=== PATIENT | female | born 1975 | race Caucasian/White ===

== ENCOUNTER 2016-07-29 16:45 | Emergency (ER) | payer MEDICAID ==
[~2016-07-29] VITALS: Ht 157.5 cm; Wt 139.3 kg
[~2016-07-29 16:45] MED LIST: DOXYCYCLINE; HYDR10TA35; LEV500T PO; METR250T PO; METRONIDAZOLE
[2016-07-29 16:55] VITALS: BP 163/111
[2016-07-29 17:43] LABS: Urine Bilirubin Negative (Negative); Urine Blood 3+ /uL (Negative); Urine Ca Oxalate Crystal FEW (None Seen); Urine Glucose Normal (Normal); Urine Ketone Negative (Negative); Urine Mucus FEW (None Seen); Urine Nitrite Negative (Negative); Urine RBC 431 /hpf (0 - 4); Urine Squamous Epithelial Cell FEW /hpf (<5); Urine pH 5.5 (5.0-8.0)
[2016-07-29 17:44] LABS: Urine Color Brown (Yellow)
== END 2016-07-30 02:11 | disposition left against medical advice (07) ==
LOC: ER 16:45 → EDBD 16:45 → ER 07-30 01:00
DX: R10.9 Unspecified abdominal pain (principal); R35.0 Frequency of micturition; Z53.21 Procedure and treatment not carried out due to patient leaving prior to being seen by health care provider
CPT/HCPCS: 81001; 81025

== ENCOUNTER 2020-09-06 11:56 | Emergency (ER) | payer SELFPAY ==
[~2020-09-06] VITALS: Ht 160 cm; Wt 139.3 kg
[2020-09-06 16:10] VITALS: BP 150/96
[2020-09-06] MEDS ORDERED: KETOROLAC TROMETH 60MG/2ML VIAL IM ONE (16:15)
== END 2020-09-06 16:14 | disposition home or self-care (01) ==
LOC: ER 11:56
DX: N39.0 Urinary tract infection, site not specified (principal); J45.909 Unspecified asthma, uncomplicated; F17.210 Nicotine dependence, cigarettes, uncomplicated; Z90.710 Acquired absence of both cervix and uterus; Z79.899 Other long term (current) drug therapy; Z79.2 Long term (current) use of antibiotics
CPT/HCPCS: 96372; 99283; J1885

== ENCOUNTER 2021-05-05 07:35 | Emergency (ER) | payer SELFPAY ==
[~2021-05-05] VITALS: Ht 160 cm; Wt 147.4 kg
[2021-05-05 08:42] LABS: Basophils # (auto) 0 10 ^3/uL (0-0.2); Basophils % (auto) 0.9 % (0.0-2.0); Eosinophils # (auto) 0.1 10 ^3/uL (0-0.8); Eosinophils % (auto) 2.2 % (0.0-7.0); Hematocrit 40.3 % (36.0-46.0); Hemoglobin 13.3 g/dL (12.2-16.2); Lymphocytes % (auto) 24.7 % (10.0-50.0); Mean Corpuscular Hemoglobin 29.7 pg (28.0-32.0); Monocytes # (auto) 0.6 10 ^3/uL (0-1.3); Monocytes % (auto) 15.7 % (0.0-12.0); Neutrophils # (auto) 2.3 10 ^3/uL (1.6-8.6); Neutrophils % (auto) 56.5 % (37.0-80.0); Nucleated Red Blood Cells % 0.2 %; Red Blood Cells 4.48 10^6/uL (4.0-5.20); Red Cell Distribution Width 13.3 % (11.8-14.3)
[2021-05-05 09:09] LABS: BUN/Creatinine Ratio 11.4; Calcium 7.8 mg/dL (8.5-10.1); Magnesium 1.7 mg/dL (1.6-2.6)
[2021-05-05 09:15] LABS: Bilirubin, Total 0.2 mg/dL (0.2-1.0); Total Protein 6.5 g/dL (6.4-8.2)
[2021-05-05 10:41] VITALS: BP 161/99
[2021-05-05] MEDS ORDERED: AZIT500T66 PO (11:19)
[2021-05-05] MEDS ORDERED: PRED20TA2 PO (11:19)
[2021-05-05] MEDS ORDERED: ACET-1080 PO (11:19)
[2021-05-05] MEDS ORDERED: ACETAMINOPHEN 500 MG TAB PO ONE (11:30)
== END 2021-05-05 12:03 | disposition home or self-care (01) ==
LOC: ER 07:35
DX: J03.90 Acute tonsillitis, unspecified (principal); R07.89 Other chest pain; J45.909 Unspecified asthma, uncomplicated; Z90.710 Acquired absence of both cervix and uterus
CPT/HCPCS: 36415; 71046; 80053; 83735; 84484; 85025; 93005

== ENCOUNTER 2021-10-01 03:02 | Emergency (ER) | payer SELFPAY ==
[~2021-10-01] VITALS: Ht 160 cm; Wt 139.3 kg
[~2021-10-01 03:02] MED LIST changes: +ACET-1080 PO; +AZIT500T66 PO; +PRED20TA2 PO
[2021-10-01 04:15] VITALS: BP 153/94
== END 2021-10-01 05:06 | disposition home or self-care (01) ==
LOC: ER 03:02
DX: I89.0 Lymphedema, not elsewhere classified (principal); F17.210 Nicotine dependence, cigarettes, uncomplicated; F15.10 Other stimulant abuse, uncomplicated; J45.909 Unspecified asthma, uncomplicated; Z90.710 Acquired absence of both cervix and uterus
CPT/HCPCS: 93970

== ENCOUNTER → 2021-10-24 | Emergency (ER) | payer SELFPAY ==
[~2021-10-24] VITALS: Ht 160 cm; Wt 140.6 kg
[~2021-10-24] MED LIST changes: +AMOX-277 PO; +BENZOCAINE (DENTAL) 20 % SPRAY 60ML MT ONE; +IBUP800T27 PO
[2021-10-24 11:58] VITALS: BP 165/117
== END | disposition home or self-care (01) ==
LOC: ER 09:04
DX: K04.7 Periapical abscess without sinus (principal); F17.210 Nicotine dependence, cigarettes, uncomplicated; J45.909 Unspecified asthma, uncomplicated; Z90.710 Acquired absence of both cervix and uterus